=== PATIENT | female | born 1985 | race Caucasian/White ===

== ENCOUNTER → 2018-07-05 | Outpatient (CLI) | payer OTHER ==
--- NOTE | 2018-07-06 00:46 | MR ---
EXAMINATION TYPE: MR brain wo/w con DATE OF EXAM: 07/05/2018 COMPARISON: NONE HISTORY: 33-year-old female with intractable migraines. TECHNIQUE: Multiplanar, multisequence images of the brain and brainstem were acquired before and aft er administration of 7.5 mL IV Gadavist. Diffusion weighted imaging is performed. FINDINGS: No evidence for acute infarction, hemorrhage, mass, mass effect, midline shift, herniation, effacemen t of basal cisterns, or extra-axial fluid collection. The ventricles and sulci are age-appropriate. Major intracranial flow voids are intact. T2/FLAIR weighted sequences show a solitary 4 mm focus in the subcortical region of the inferior left frontal lobe. Midline structures demonstrate normal morphology. The craniocervical junction is normal. Post contrast images demonstrate no evidence of pathologic enhancement. Dural venous sinuses are pat ent. Mild mucosal thickening within the ethmoid air cells. Globes are intact. IMPRESSION: 1. No acute intracranial abnormality seen. 2. Solitary 4 mm bright white matter focus in the subcortical region of the inferior left frontal lob e. This is nonspecific but could represent early changes related to chronic migraines.
== END ==
LOC: RADMRIMAIN 13:48
PROVIDERS: ATTEND Nurse Practitioner
DX: R90.89 Other abnormal findings on diagnostic imaging of central nervous system (principal)
CPT/HCPCS: 70553; A9581

== ENCOUNTER → 2018-12-21 | Outpatient (CLI) | payer OTHER ==
--- NOTE | 2018-12-21 12:24 | MM ---
Reason for exam: screening (asymptomatic). Baseline mammogram. History: Taking hormonal contraceptives beginning at age 18. Physical Findings: Nurse did not find any significant physical abnormalities on exam. MG Screening Mammo w CAD Bilateral CC and MLO view(s) were taken. The breast tissue is heterogeneously dense. This may lower the sensitivity of mammography. Mild distortion right upper outer quadrant. These results were verbally communicated with the patient and result sheet given to the patient on 12/21/18. ASSESSMENT: Probably benign, BI-RAD 3 RECOMMENDATION: Follow-up diagnostic mammogram of the right breast in 6 months. Manage patient on a clinical basis.
== END | disposition home or self-care (01) ==
LOC: RADMAMWWP 09:08
PROVIDERS: ATTEND Family Medicine
DX: Z12.31 Encounter for screening mammogram for malignant neoplasm of breast (principal)
CPT/HCPCS: 77067

== ENCOUNTER → 2019-08-08 | Outpatient (CLI) | payer OTHER ==
--- NOTE | 2019-08-08 10:33 | MM ---
Reason for exam: follow-up at short interval from prior study. Last mammogram was performed 8 months ago. History: Taking hormonal contraceptives beginning at age 18. Physical Findings: Nurse did not find any significant physical abnormalities on exam. MG Diagnostic Mammo RT w CAD CC and MLO view(s) were taken of the right breast. Prior study comparison: December 21, 2018, bilateral MG screening mammo w CAD. Right upper outer quadrant focal asymmetry similar to the prior. Precautionary right upper outer quadrant ultrasound. These results were verbally communicated with the patient and result sheet given to the patient on 08/08/19. ASSESSMENT: Incomplete: need additional imaging evaluation, BI-RAD 0 RECOMMENDATION: Ultrasound of the right breast. (upper outer quadrant) Manage on a clinical basis with regard to nonfocal left breast pain.
--- NOTE | 2019-08-08 10:34 | USB ---
Reason for exam: additional evaluation requested from abnormal screening. History: Taking hormonal contraceptives beginning at age 18. US Breast Limited RT Right limited breast ultrasound including focal area of concern, retroareolar and axilla demonstrates no cystic or solid lesion seen. These results were verbally communicated with the patient and result sheet given to the patient on 08/08/19. ASSESSMENT: Negative, BI-RAD 1 RECOMMENDATION: Routine screening mammogram of both breasts at age 42. (or sooner if clinically indicated) Manage on a clinical basis with regard to bilateral nonfocal breast pain.
== END | disposition home or self-care (01) ==
LOC: RADMAMWWP 09:15
PROVIDERS: ATTEND Family Medicine
DX: R92.8 Other abnormal and inconclusive findings on diagnostic imaging of breast (principal); N64.4 Mastodynia
CPT/HCPCS: 77065

== ENCOUNTER → 2021-12-15 | Outpatient (CLI) | payer OTHER ==
--- NOTE | 2021-12-15 11:37 | XR ---
EXAMINATION TYPE: XR thoracic spine complete DATE OF EXAM: 12/15/2021 COMPARISON: 01/07/2014 HISTORY: Pain TECHNIQUE: 3 views submitted FINDINGS: Alignment is anatomic. There is no compression deformities. Vertebral body height and disc interspa ramiro are maintained. IMPRESSION: 1. No acute abnormality.
--- NOTE | 2021-12-15 11:38 | XR ---
EXAMINATION TYPE: XR cervical spine comp DATE OF EXAM: 12/15/2021 COMPARISON: NONE HISTORY: Pain TECHNIQUE: Four views are submitted. FINDINGS: The odontoid is intact. There are no compression deformities. The prevertebral soft tissue structur es are within normal limits. IMPRESSION: 1. No acute process. If symptoms persist consider MRI.
== END | disposition home or self-care (01) ==
LOC: RADXRYALE 10:06
PROVIDERS: ATTEND Physician Assistant Medical
DX: M54.2 Cervicalgia (principal); M54.6 Pain in thoracic spine; W01.10XA Fall on same level from slipping, tripping and stumbling with subsequent striking against unspecified object, initial encounter
CPT/HCPCS: 72050; 72072

== ENCOUNTER → 2022-05-30 | Outpatient (CLI) | payer OTHER ==
--- NOTE | 2022-05-30 12:14 | XR ---
EXAMINATION TYPE: XR cervical spine limited DATE OF EXAM: 05/30/2022 COMPARISON: 12/15/2021 HISTORY: Pain TECHNIQUE: 2 views submitted FINDINGS: The odontoid is intact. There are no compression deformities. The prevertebral soft tissue structures are within normal limits. Cannot exclude small bilateral cervical ribs. IMPRESSION: No acute process. Recommend follow-up MRI if symptoms are persistent.
== END | disposition home or self-care (01) ==
LOC: RADXRYALE 11:33
PROVIDERS: ATTEND Nurse Practitioner
DX: M54.2 Cervicalgia (principal)
CPT/HCPCS: 72040

== ENCOUNTER → 2024-01-01 | Outpatient (CLI) | payer OTHER ==
--- NOTE | 2024-01-01 14:26 | XR ---
EXAMINATION TYPE: XR knee limited RT DATE OF EXAM: 01/01/2024 11:13 AM CLINICAL INDICATION:Female, 38 years old with history of [id number] RT KNEE PAIN; COMPARISON: None. TECHNIQUE: XR knee limited RT; examined in Frontal, lateral and oblique projections. FINDINGS: No evidence of any acute osseous pathology, soft tissue swelling, or joint effusion is no emerald. Minimal osteophyte formation and tibial plateau. IMPRESSION: 1. No acute osseous pathology. 2. Minimal osteoarthritic changes.
== END | disposition home or self-care (01) ==
LOC: RADXRYALE 11:04
PROVIDERS: ATTEND Nurse Practitioner
DX: M17.11 Unilateral primary osteoarthritis, right knee (principal)

== ENCOUNTER → 2025-03-08 | Outpatient (CLI) | payer OTHER ==
--- NOTE | 2025-03-08 10:31 | MR ---
EXAMINATION TYPE: MR knee RT wo con DATE OF EXAM: 03/08/2025 10:21 AM COMPARISON: None. CLINICAL INDICATION: Female, 39 years old with history of M25.561 PAIN IN RIGHT KNEE, Right knee pain and locking x2 years IV Contrast: cc (None if empty) TECHNIQUE: Multiplanar, multisequence imaging of the right knee is performed without IV contrast. FINDINGS: There is no bone contusion or fracture. There is a tiny joint effusion. There is a fissure in the medial patellar facet cartilage and there is mild increased signal intensit y in the lateral patellar facet cartilage consistent with chondromalacia patella. The medial and late ral compartment articular cartilages are well preserved. The quadriceps and patellar tendons are intact. The anterior fat pad is normal. The cruciate and collateral ligaments are intact. There is no meniscal tear. IMPRESSION: IMPRESSION: 1. 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 2. No meniscal or ligamentous injury. [facility], Workstation: [email or web address] 03/08/2025 10:28 AM
== END | disposition home or self-care (01) ==
LOC: RADMRIMAIN 09:21
PROVIDERS: ATTEND Family Medicine
DX: M22.41 Chondromalacia patellae, right knee (principal)